=== PATIENT | male | born 1970 | race Caucasian/White ===

== ENCOUNTER → 2021-06-08 | Outpatient (CLI) | payer OTHER ==
[~2021-06-08] MED LIST: DAYPRO600 M1 PO; NKHM; ROBAXIN750 MG PO
== END | disposition home or self-care (01) ==
LOC: COVID19 15:23
PROVIDERS: ATTEND Internal Medicine
DX: U07.1 COVID-19 (principal)

== ENCOUNTER 2022-08-15 02:05 | Emergency (ER) | payer SELFPAY ==
[~2022-08-15] VITALS: Ht 185.4 cm; Wt 99.8 kg
== END 2022-08-15 04:02 | disposition home or self-care (01) ==
LOC: ED 02:05
DX: S01.01XA Laceration without foreign body of scalp, initial encounter (principal); R55 Syncope and collapse; W18.39XA Other fall on same level, initial encounter; Y93.89 Activity, other specified; Y92.89 Other specified places as the place of occurrence of the external cause; Y99.8 Other external cause status

== ENCOUNTER 2025-02-16 11:10 | Emergency (ER) | payer OTHER ==
[~2025-02-16] VITALS: Ht 182.8 cm; Wt 105.2 kg
[2025-02-16] MEDS ORDERED: CEPHALEXIN500 M1 PO (12:56)
== END 2025-02-16 13:15 | disposition home or self-care (01) ==
LOC: ED 11:10
DX: S01.01XA Laceration without foreign body of scalp, initial encounter (principal); W22.8XXA Striking against or struck by other objects, initial encounter; Y93.89 Activity, other specified; Y92.89 Other specified places as the place of occurrence of the external cause; Y99.8 Other external cause status

== ENCOUNTER 2025-02-26 14:55 | Emergency (ER) | payer OTHER ==
[~2025-02-26] VITALS: Ht 182.8 cm; Wt 106.6 kg
[~2025-02-26 14:55] MED LIST changes: +CEPHALEXIN500 M1 PO
== END 2025-02-26 15:36 | disposition home or self-care (01) ==
LOC: ED 14:55
DX: S01.01XD Laceration without foreign body of scalp, subsequent encounter (principal); Z48.02 Encounter for removal of sutures; W22.8XXD Striking against or struck by other objects, subsequent encounter